=== PATIENT | female | born 1950 | race Caucasian/White ===

== ENCOUNTER → 2016-05-13 | Outpatient (CLI) | payer BC ==
[~2016-05-13] MED LIST: ATOR10TA88 PO; LISI-461 PO; SYN50 PO
[2016-05-13 12:42] LABS: BASO % 1.1 %; BASO ABS # 0.09 K/uL (0-0.2); COMPLETE YES; EOS % 14.9 %; HEMATOCRIT 40.5 % (37-47); IG% 0.1 %; LYMPH % 25.4 %; LYMPH ABS # 2.01 K/uL (1.2-3.4); MEAN CORPUSCULAR HEMOGLOBIN 31.6 pg (25-34); MEAN CORPUSCULAR HGB CONC 33.6 g/dl (32-36); MEAN PLATELET VOLUME 11.8 fL (7.4-10.4); MONO % 8.2 %; NEUT % 50.3 %; PLATELET COUNT 242 K/uL (130-400); RED BLOOD COUNT 4.31 M/uL (4.2-5.4)
[2016-05-13 12:57] LABS: ALT/SGPT 36 U/L (12-78); BLOOD UREA NITROGEN 17 mg/dl (7-18); CALCIUM 9.5 mg/dl (8.5-10.1); CARBON DIOXIDE 28 mmol/L (21-32); CHLORIDE 105 mmol/L (98-107); CHOLESTEROL 169 mg/dl (0-200); GLUCOSE 166 mg/dl (70-99); POTASSIUM 4.2 mmol/L (3.5-5.1); SODIUM 142 mmol/L (136-145); TRIGLYCERIDES 170 mg/dl (0-150); VERY LOW DENSITY LIPOPROT CALC 34 mg/dl
[2016-05-13 13:07] LABS: ALB/GLOB RATIO 1.1 (0.9-2); ALKALINE PHOSPHATASE 90 U/L (45-117); AST/SGOT 31 U/L (15-37); CHOLESTEROL/HDL RATIO 2.9; HDL CHOLESTEROL 59 mg/dl; LDL CHOLESTEROL CALCULATED 76 mg/dl
[2016-05-13 13:17] LABS: ESTIMATED AVERAGE GLUCOSE 166 mg/dl; HA1C FLAG Normal (Normal)
== END | disposition home or self-care (01) ==
LOC: C.LABBFT 07:39
PROVIDERS: ATTEND Internal Medicine
DX: Z00.00 Encounter for general adult medical examination without abnormal findings (principal); I10 Essential (primary) hypertension; E03.9 Hypothyroidism, unspecified; E78.00 Pure hypercholesterolemia, unspecified; R73.01 Impaired fasting glucose; E87.6 Hypokalemia; R06.09 Other forms of dyspnea

== ENCOUNTER 2024-02-25 03:25 | Inpatient (IN) ==
--- NOTE | 2024-02-25 03:47 | Emergency Department Note ---
History of Present Illness General Chief complaint: Abdominal Pain Stated complaint: RT SIDE ABD PAIN Time Seen by Provider: 02/25/24 03:39 History of Present Illness Maximum Pain Intensity: 9 This 73-year-old female with no prior abdominal surgeries presents ER for right lower abdominal pain for the past several hours. Patient cannot sleep because of the pain. She still is her appendix. Patient denies chest pain, dyspnea, fevers, flank pain, urinary symptoms, rash. No injury to the area. Her daughter yesterday. Home Medications Medication Instructions Recorded Confirmed Type aspirin 81 mg tablet,delayed 81 mg PO QAM 10/28/18 02/08/24 History release cholecalciferol (vitamin D3) 25 1,000 unit PO QAM 10/28/18 02/08/24 History mcg (1,000 unit) capsule (Vitamin D3) blood sugar diagnostic (OneTouch #100 ea 03/03/22 02/08/24 Rx Ultra Test strips) dapagliflozin propanediol 10 mg 10 mg PO DAILY #90 tabs 04/02/23 02/08/24 Rx tablet (Farxiga) levothyroxine 50 mcg tablet 50 mcg PO DAILY #90 tabs 04/21/23 02/08/24 Rx atorvastatin 20 mg tablet 20 mg PO DAILY #90 tabs 09/09/23 02/08/24 Rx metformin 500 mg tablet,extended 1,000 mg (2 x 500 mg) PO DAILY 10/21/23 02/08/24 Rx release 24 hr #180 tabs lisinopril 20 mg tablet 20 mg PO DAILY #90 tabs 01/25/24 02/08/24 Rx potassium chloride 20 mEq 20 meq PO DAILY #90 tabs 02/08/24 02/08/24 Rx tablet,extended release Allergies Allergy/AdvReac Type Severity Reaction Status Date / Time Sulfa (Sulfonamide Allergy Intermediate Hives Verified 02/08/24 08:24 Antibiotics) allopurinol AdvReac elevated Verified 02/08/24 08:24 creatinine Past Med/Surg History Problem List (Updated 02/25/24 @ 06:08 by Yolanda Iyer PA-C) Abdominal pain, acute (Acute) Elevated troponin (Acute) Hypokalemia (Acute) Hypomagnesemia (Acute) Mitral regurgitation (Chronic) mild on echo 2022 Hyperuricemia (Chronic) with recurrent gout Third degree uterine prolapse (Chronic) Hurst-Walker grade 3 cystocele (Chronic) Vaginal pessary present (Chronic) Type 2 diabetes mellitus (Chronic) Hypothyroidism (Chronic) Hypertension (Chronic) Hypercholesterolemia (Chronic) Medical History (Updated 02/25/24 @ 06:08 by Yolanda Iyer PA-C) History of colon polyps Surgical History History of colonoscopy History of tooth extraction History of cataract surgery unsure which eye Family History Mother Coronary heart disease Brother Myocardial infarction Grandmother (Paternal) Family history of diabetes mellitus Other Brain cancer No family history of adverse response to anesthesia Denies family history of Ovarian cancer Prostate cancer Breast cancer Colorectal cancer Social History Smoking Status: Never smoker Second Hand Exposure: Yes ( smoked when he was younger, now is ); Do You Dip or Chew Tobacco: No; Hx Alcohol Use: No Hx Substance Use: No Preferred Language: Korean Communication Ability: Effective Visual Impairment: No Limitations Hearing Ability: Normal Laboratory Helper Required: No Beliefs That Will Affect Care: None marital status: / Current Living Situation: Alone current occupational status: employed and retired 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 Feels Safe at Home: Yes Childhood Exposure to Second-Hand Smoke: Yes Diet: regular caffeine: Yes Dental Care, Regularly: No Physical Activity Frequency: Does not Exercise Seatbelt Use: always Sunscreen Use: No Assistive Devices: Glasses Review of Systems A total of 10 systems reviewed and were otherwise negative Physical Exam Vital Signs Vital Signs - 24 hr 02/25/24 03:29 02/25/24 04:01 02/25/24 04:01 Temperature 36.2 C L 36.9 C Temperature Source Temporal Artery Scan Oral Pulse Rate 78 72 Pulse Rate [Apical] 74 Pulse Rate from SpO2 Sensor Respiratory Rate 18 18 Respiratory Effort / Characteristics Non-Labored Spontaneous Non-Labored Respiratory Depth Normal Normal Respiratory Pattern Regular Regular Blood Pressure 201/108 H Blood Pressure [Right Arm] 212/92 H Blood Pressure Mean 139 Blood Pressure Mean [Right Arm] 132 Pulse Oximetry 98 96 96 Oxygen Delivery Method Room Air Room Air Room Air Sepsis Recent Fever Within 48 Hours No Sepsis New/Unexplained Change in Mental Status No Sepsis Action Taken by Nursing No Action Required 02/25/24 04:34 02/25/24 05:11 02/25/24 05:20 Temperature Temperature Source Pulse Rate 61 Pulse Rate [Apical] 69 Pulse Rate from SpO2 Sensor 65 Respiratory Rate 18 20 Respiratory Effort / Characteristics Non-Labored Respiratory Depth Normal Respiratory Pattern Regular Blood Pressure 186/80 H Blood Pressure [Right Arm] 187/86 H Blood Pressure Mean 145 Blood Pressure Mean [Right Arm] 119 Pulse Oximetry 99 95 Oxygen Delivery Method Room Air Room Air Sepsis Recent Fever Within 48 Hours Sepsis New/Unexplained Change in Mental Status Sepsis Action Taken by Nursing VITALS: Vitals are noted on the nurse's note and reviewed by myself. Vital signs stable. GENERAL: Pleasant elderly female ambulating without difficulties, in no acute distress, nondiaphoretic, well-developed well-nourished. SKIN: Capillary reflex less than 2 seconds. HEENT: Normocephalic. PERRLA. EOMI. Nares patent. Mucous membranes moist. Neck is supple without nuchal rigidity. HEART: Regular rate and rhythm LUNGS: Clear to auscultation bilaterally without wheezes, rales or rhonchi. No retractions or accessory muscle use. ABDOMEN: Positive bowel sounds x 4. Normal tympanic percussion. Soft, tender to palpation right lower quadrant, without masses or organomegaly. Santana sign negative. No guarding or rebound tenderness. no CVA tenderness MUSCULOSKELETAL: No gross musculoskeletal defects. NEURO: Patient was alert and oriented to person place and time. No focal neurological deficits. Course Administered Medications Potassium Chloride (K Aidan / Wtr) 10 meq in 100 mls @ 100 mls/hr IV Q1H SHALINI Stop: 02/25/24 06:44 Last Admin: 02/25/24 05:20 Dose: 100 mls/hr Documented By: SE Magnesium Sulfate/Dextrose (Magnesium Sulfate / D5w) 1 gm in 100 mls @ 100 mls/hr IV Q1H SHALINI Stop: 02/25/24 06:39 Last Admin: 02/25/24 05:21 Dose: 100 mls/hr Documented By: SE Discontinued Medications Acetaminophen (Ofirmev) 1,000 mg in 100 mls @ 400 mls/hr IV NOW [facility] Stop: 02/25/24 03:58 Last Infusion: 02/25/24 04:13 Dose: Infused Documented By: Admin: 02/25/24 03:57 Dose: 400 mls/hr Documented By: SE Ioversol (Optiray 320 100ml) 100 ml IV ONCE ONE Stop: 02/25/24 04:42 Last Admin: 02/25/24 04:42 Dose: 93 ml Documented By: DORCAS Ondansetron HCl (Ondansetron Inj 2 Mg/Ml 2 Ml Vial) 4 mg IV NOW STA Stop: 02/25/24 03:45 Last Admin: 02/25/24 03:57 Dose: 4 mg Documented By: SE Potassium Chloride (Potassium Chloride Crtab 20 Meq Tabcr) 40 meq PO NOW STA Stop: 02/25/24 04:40 Last Admin: 02/25/24 05:20 Dose: 40 meq Documented By: SE Medical Decision Making Medical Records Attestation: I reviewed the patient's medical records. Home Medications Current Medication List: was personally reviewed by me Laboratory Data Attestation: I reviewed the patient's lab results. 02/25/24 03:44 02/25/24 03:44 Lab Results 02/25/24 02/25/24 02/25/24 Range/Units 03:40 03:44 03:53 WBC 13.28 H (4.8-10.8) K/ul RBC 4.57 (4.20-5.40) M/uL Hgb 13.9 (12.0-16.0) g/dl POC Hgb 13.9 (12.0-16.0) g/dl Hct 40.3 (37.0-47.0) % POC Hct 41 (37-47) % MCV 88.2 (80.0-100.0) fL MCH 30.4 (25.0-34.0) pg MCHC 34.5 (32.0-36.0) g/dL RDW Std Deviation 39.0 (36.4-46.3) fL RDW Coeff of Faustino 12.1 (11.5-14.5) % Plt Count 276 (130-400) K/uL MPV 11.7 (9.4-12.4) fL Immature Gran % (Auto) 0.4 % Neut % (Auto) 82.0 % Lymph % (Auto) 11.4 % [place] % (Auto) 4.5 % Eos % (Auto) 1.1 % Baso % (Auto) 0.6 % Neut # (Auto) 10.90 H (1.40-6.50) K/uL Lymph # (Auto) 1.51 (1.20-3.40) K/uL [place] # (Auto) 0.60 H (0.11-0.59) K/uL Eos # (Auto) 0.14 (0.00-0.50) K/uL Baso # (Auto) 0.08 (0.00-0.20) K/uL Immature Gran # (Auto) 0.05 (0.01-0.20) K/uL POC Sodium 143 (135-144) mmol/L Sodium 142 (136-145) mmol/L POC Potassium 2.6 L (3.3-5.0) mmol/L Potassium 2.7 L (3.5-5.1) mmol/L POC Chloride 104 (101-112) mmol/L Chloride 103 (98-107) mmol/L Carbon Dioxide 25 (21-32) mmol/L POC Total CO2 24 (24-31) mmol/L Anion Gap 14 H (3-11) POC Anion Gap 19.0 (16-25) mmol/L POC BUN 12 (7-18) mg/dl BUN 14 (6-23) mg/dl Creatinine 1.17 (0.6-1.2) mg/dl POC Creatinine 1.1 (0.6-1.3) mg/dl Est Cr Clr Drug Dosing 42.0 ml/min eGFR 48.66 BUN/Creatinine Ratio 12.0 (10-20) Glucose 210 H (70-99(Fasting)) mg/dl POC Glucose (other) 206 H (70-99) mg/dl Calcium 9.3 (8.6-10.3) mg/dl POC Ioniz Calcium Rylie 1.10 L (1.12-1.32) mmol/l Magnesium 1.4 L (1.7-2.4) mg/dl Total Bilirubin 0.8 (0.2-1.0) mg/dl AST 22 (13-39) U/L ALT 18 (7-52) U/L Alkaline Phosphatase 125 H (34-104) U/L Troponin I High Sens 24.3 H (0-14) pg/ml Total Protein 7.4 (6.0-8.3) gm/dl Albumin 4.5 (3.4-5.0) gm/dl Globulin 2.9 (2.5-4.0) gm/dl Albumin/Globulin Ratio 1.6 (0.9-2) Lipase 14 (11-82) U/L Urine Color Yellow Urine Appearance Clear (Clear) Urine pH 5.5 (4.5-7.5) Ur Specific [place] 1.020 (1.000-1.030) Urine Protein 2+ H (Negative) Urine Glucose (UA) Negative (Negative) Urine Ketones Negative (Negative) Urine Blood Negative (Negative) Urine Nitrite Negative (Negative) Urine Bilirubin Negative (Negative) Urine Urobilinogen Negative (Negative) Ur Leukocyte Esterase Negative (Negative) Urine WBC (Auto) 0-5 (0-5) /hpf Urine RBC (Auto) 0-2 (0-2) /hpf U Hyaline Cast (Auto) 3-5 H (0-2) /lpf U Epithel Cells (Auto) 3-5 H (0-2) /hpf Urine Bacteria (Auto) None Seen (None Seen) Imaging Data Attestation: I personally reviewed and interpreted this imaging study as follows: Radiologist's Impression: Abdomen/Pelvis CT 02/25/24 03:44 EXAM: CT abd pelvis IV con only CLINICAL HISTORY: PAIN AT RLQ. TECHNIQUE: A CT scan of the abdomen and pelvis was performed with IV contrast administration. Coronal and sagittal reconstructive images were also obtained. 93 ml of Optiray was administered intravenously. One of the following dose reduction techniques was utilized for this exam: Automated exposure control, adjustment of the mA and/or kV according to patient size, use of iterative reconstruction. DLP: 1261.8 mGy-cm, CTDI: 1=27.2 mGy. COMPARISON: None. FINDINGS: Right vesicoureteric junction intramural calculus measuring about 2 x 3 mm in diameter. Consequent mild proximal right ureteric and pelvicalyceal system dilatation with smudged perinephric and periureteric fat planes and relatively enlarged right kidney, possibly post-acute obstructive/inflammatory sequel. Both kidneys show smooth outlines and preserved parenchymal thickness. No left hydronephrosis. No renal calculi. Under-filled urinary bladder. No obvious masses or calculi. No uterine or adnexal masses. Mild pelvic floor descent Average-sized liver showing diffuse reduction of its parenchymal attenuation denoting fatty infiltration. No dilated intra or extra-hepatic biliary tracts. Distended gall bladder showing sludge and calculi. Clear surrounding fat planes. Average-sized spleen. The pancreas, adrenal glands, and IVC are unremarkable. Vascular atheromatous calcifications. Mild sigmoid diverticulosis. Colonic fecal loading. The colon and small bowel loops are unremarkable. The stomach shows no abnormality No free air and no ascites. No obvious pathologically enlarged lymph nodes. Scanned osseous structures show no osseous destruction. Spondylodegnerative changes Scanned lung bases show atelectatic changes IMPRESSION: 1. Right vesicoureteric junction intramural calculus 2 x 3 mm with consequent mild proximal backpressure changes. Associated smudged perinephric and periureteric fat planes and relatively enlarged right kidney, possibly post acute obstructive/inflammatory sequel. 2. Hepatic steatosis. 3. Distended gall bladder sludge and calculi. 4. Mild sigmoid diverticulosis. 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 Electronically signed by Olive Barron 02-25-2024 06:00 AM MDM Narrative Prior records/ancillary studies reviewed. Triage Nursing notes reviewed. Additional history obtained from family. The patient's history was concerning for abdominal pain. Differential diagnosis: Etiologies such as appendicitis, diverticulitis, PUD, biliary pathology, UTI, pancreatitis, obstruction, mesenteric ischemia, aortic pathology, infections, inflammatory bowel disease, renal colic, as well as others were entertained. Physical examination findings: As above. ER treatment provided: An order was placed for continuous cardiac monitoring. The monitor shows a rate of 60-100 with a sinus rhythm per my Independent interpretation. Tylenol and Zofran were ordered Potassium and magnesium replaced On reassessment the patient felt better. Diagnostics interpreted by me: EKG ordered for hypokalemia EKG: Normal sinus, probable U waves in the anteroseptal leads, rate of 65. Impression normal sinus rhythm with possible U waves independently interpreted by myself The labs Independently Interpreted by myself revealed hypokalemia, low magnesium, leukocytosis, slightly elevated troponin Imaging studies: Imaging was reviewed and read by radiology Consultation: A consultation was placed with the hospitalist. The case was discussed and diagnostics were reviewed. The patient was evaluated in the ER for further treatment. Exam and history seem consistent with low potassium and magnesium with a slightly elevated troponin most likely type II. Patient states she has not been eating or drinking much with the passing of her daughter. CAT scan is concerning for probably passed stone as patient's pain is now resolved. No UTI. She is feeling better. Medicine was consulted and the case is discussed. She will be evaluated for possible admission. Electrolytes were replaced as above. By the evaluation outlined above emergent etiologies such as appendicitis, diverticulitis, PUD, biliary pathology, UTI, pancreatitis, obstruction, mesenteric ischemia, aortic pathology, infections, inflammatory bowel disease, as well as others were deemed relatively unlikely. The pt informed about the findings as listed above. All questions were answered and pleased with the treatment The chart was completed utilizing [employer] Speech voice recognition software. Grammatical errors, random word insertions, pronoun errors, and incomplete sentences are an occassional consequence of this system due to software limitations, ambient noise, and hardware issues. Any formal questions or concerns about the content, text, or information contained within the body of this dictation should be directly addressed to the physician orthodontist assistant for clarification. Impression & Plan Hypomagnesemia, Hypokalemia, Elevated troponin, Abdominal pain, acute Discharge Plan Visit Data Chief Complaint: Abdominal Pain Stated Complaint: RT SIDE ABD PAIN ED Provider: Traci Lee ED Midlevel Provider: Yolanda Iyer Discharge Problem: Hypomagnesemia, Hypokalemia, Elevated troponin, Abdominal pain, acute Patient Disposition: Being Evaluated by Hospitalist Condition: Good Forms Stand Alone Forms: My [facility] Chatty Prescriptions Prescriptions: No Action (DME) OneTouch Ultra Test Strip See Rx Instructions .Route Qty: 100 5RF Rx Instructions: TEST BSG ONCE DAILY; DX CODE- E11.9 dapagliflozin propanediol [Farxiga] 10 mg tablet 10 mg PO DAILY Qty: 90 3RF levothyroxine 50 mcg tablet 50 mcg PO DAILY Qty: 90 3RF atorvastatin 20 mg tablet 20 mg PO DAILY Qty: 90 3RF metformin 500 mg tablet extended release 24 hr 1,000 mg PO DAILY Qty: 180 3RF lisinopril 20 mg tablet 20 mg PO DAILY Qty: 90 3RF potassium chloride 20 mEq tablet extended release 20 meq PO DAILY Qty: 90 3RF aspirin 81 mg Tablet,Delayed Release (Dr/Ec) 81 mg PO QAM cholecalciferol (vitamin D3) [Vitamin D3] 1,000 unit Capsule 1,000 unit PO QAM Referrals Referrals: Patricia Bojorquez MD [Primary Care Provider] -
[2024-02-25] MEDS: ONDANSETRON INJ 2 MG/ML 2 ML VIAL IV STA (03:57)
[2024-02-25] MEDS: ACETAMINOPHEN 1,000 MG/100 ML VIAL IV STA (03:57)
[2024-02-25 04:05] LABS: iSTAT Creatinine 1.1 mg/dl (0.6-1.3); iSTAT Hemoglobin 13.9 g/dl (12.0-16.0); iSTAT Ionized Calcium 1.1 mmol/l (1.12-1.32); iSTAT Potassium 2.6 mmol/L (3.3-5.0)
[2024-02-25 04:07] LABS: Basophils # (auto) 0.08 K/uL (0.00-0.20); Basophils % (auto) 0.6 %; Eosinophils # (auto) 0.14 K/uL (0.00-0.50); Eosinophils % (auto) 1.1 %; Hematocrit (blood only) 40.3 % (37.0-47.0); Hemoglobin 13.9 g/dl (12.0-16.0); Immature Granulocytes # (auto) 0.05 K/uL (0.01-0.20); Immature Granulocytes % (auto) 0.4 %; Lymphocytes # (auto) 1.51 K/uL (1.20-3.40); Lymphocytes % (auto) 11.4 %; Mean Corpuscular Hemoglobin 30.4 pg (25.0-34.0); Mean Corpuscular Hgb Conc 34.5 g/dL (32.0-36.0); Mean Corpuscular Volume 88.2 fL (80.0-100.0); Mean Platelet Volume 11.7 fL (9.4-12.4); Monocytes % (auto) 4.5 %; Platelet Count 276 K/uL (130-400); RDW Coefficient of Variation 12.1 % (11.5-14.5); Red Blood Count 4.57 M/uL (4.20-5.40); White Blood Count 13.28 K/ul (4.8-10.8)
[2024-02-25 04:07] LABS: Appearance Urine Clear (Clear); Bacteria Urine Automated None Seen (None Seen); Bilirubin Urine Negative (Negative); Blood Urine Negative (Negative); Color Urine Yellow; Glucose Urine UA Negative (Negative); Ketones Urine Negative (Negative); Leukocyte Esterase Urine Negative (Negative); Nitrite Urine Negative (Negative); Protein Urine 2+ (Negative); RBC Urine Automated 0-2 /hpf (0-2); Urobilinogen Urine Negative (Negative); WBC Urine Automated 0-5 /hpf (0-5); pH Urine 5.5 (4.5-7.5)
[2024-02-25 04:22] LABS: Albumin Globulin Ratio 1.6 (0.9-2); Albumin Level 4.5 gm/dl (3.4-5.0); Bilirubin,Total 0.8 mg/dl (0.2-1.0); Calcium 9.3 mg/dl (8.6-10.3); Globulin 2.9 gm/dl (2.5-4.0); Potassium 2.7 mmol/L (3.5-5.1); Total Protein 7.4 gm/dl (6.0-8.3)
[2024-02-25 04:30] LABS: Magnesium 1.4 mg/dl (1.7-2.4)
[2024-02-25 04:37] LABS: Troponin I High Sensitivity 24.3 pg/ml (0-14)
[2024-02-25] MEDS: OPTIRAY 320 100ml IV ONE (04:42)
[2024-02-25] MEDS: POTASSIUM CHLORIDE / WTR 10 MEQ/100 ML PLCT IV SCH (05:20)
[2024-02-25] MEDS: POTASSIUM CHLORIDE CRTAB 20 MEQ TABCR PO STA (05:20)
[2024-02-25] MEDS: MAGNESIUM SULFATE / D5W 1 GM/100 ML BAG IV SCH (05:21)
--- NOTE | 2024-02-25 06:01 | CT Scan Report ---
EXAM: CT abd pelvis IV con only CLINICAL HISTORY: PAIN AT RLQ. TECHNIQUE: A CT scan of the abdomen and pelvis was performed with IV contrast administration. Coronal and sagittal reconstructive images were also obtained. 93 ml of Optiray was administered intravenously. One of the following dose reduction techniques was utilized for this exam: Automated exposure control, adjustment of the mA and/or kV according to patient size, use of iterative reconstruction. DLP: 1261.8 mGy-cm, CTDI: 1=27.2 mGy. COMPARISON: None. FINDINGS: Right vesicoureteric junction intramural calculus measuring about 2 x 3 mm in diameter. Consequent mild proximal right ureteric and pelvicalyceal system dilatation with smudged perinephric and periureteric fat planes and relatively enlarged right kidney, possibly post-acute obstructive/inflammatory sequel. Both kidneys show smooth outlines and preserved parenchymal thickness. No left hydronephrosis. No renal calculi. Under-filled urinary bladder. No obvious masses or calculi. No uterine or adnexal masses. Mild pelvic floor descent Average-sized liver showing diffuse reduction of its parenchymal attenuation denoting fatty infiltration. No dilated intra or extra-hepatic biliary tracts. Distended gall bladder showing sludge and calculi. Clear surrounding fat planes. Average-sized spleen. The pancreas, adrenal glands, and IVC are unremarkable. Vascular atheromatous calcifications. Mild sigmoid diverticulosis. Colonic fecal loading. The colon and small bowel loops are unremarkable. The stomach shows no abnormality No free air and no ascites. No obvious pathologically enlarged lymph nodes. Scanned osseous structures show no osseous destruction. Spondylodegnerative changes Scanned lung bases show atelectatic changes IMPRESSION: 1. Right vesicoureteric junction intramural calculus 2 x 3 mm with consequent mild proximal backpressure changes. Associated smudged perinephric and periureteric fat planes and relatively enlarged right kidney, possibly post acute obstructive/inflammatory sequel. 2. Hepatic steatosis. 3. Distended gall bladder sludge and calculi. 4. Mild sigmoid diverticulosis. 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 Electronically signed by Olive Barron 02-25-2024 06:00 AM
--- NOTE | 2024-02-25 06:15 | History & Physical Report ---
Date of Service February 25, 2024 Assessment & Plan (1) Abdominal pain, acute: (2) Hypokalemia: (3) Hypomagnesemia: Plan 73-year-old female PMHx T2DM, hypothyroidism, HTN, and hypercholesterolemia presenting to ED for onset of RLQ abdominal pain starting at 0100 the morning of arrival. States that the pain had a sudden onset, mainly localized to the RLQ and wrapping some to her R flank. CTAP suggestive of right vesicoureteric junction intramural calculus 2 x 3 mm with consequent mild proximal back pressure changes, associated smudged perinephric and periureteric fat planes and relatively enlarged right kidney, possibly post acute obstructive/inflammatory sequel. States that the pain has improved some upon admitting exam. Also found to have hypokalemia and hypomagnesemia on admitting labs. #Abdominal pain RLQ abdominal pain starting at 0100 morning of arrival, localized to RLQ w/ wrap around to R flank, no LUTS or gross stone noticed w/ urination. Suspect 2/2 to renal calculi. Increasing in severity, but without additional symptoms of nausea/vomiting/diarrhea. No prior abdominal surgeries. Does have h/o diverticulosis identified on colonoscopy (2019). - CBC w/ leukocytosis, lipase WNL, UA w/o signs of infection - CTAP - R vesicoureteric junction intramural calculus 2x3 mm w/ mild proximal backpressure changes, enlarged R kidney, ? post acute obstructive/inflammatory sequel - Ceftriaxone 2g IV x 1 - Will not provide additional doses as she is not having infectious symptoms however would prefer to cover for any possibility of infected stone - Strain urine for chance of additional passing of stone(s) #Hypokalemia Asymptomatic currently; Appears to have had low reading in the past and does take KCl 20 mEq daily as outpatient which was a recent dose adjustment (increase). - K 2.7; provided with KCl 40 mEq p.o. and 10 mEq IV; Give additional 40 mEq KCl - Mg 1.4; BMP pending repeat #Hypomagnesemia With concurrent hypokalemia - Mg 1.4; provided with mag sulfate 1 g in ED - MgSO4 1 g IV x 1- Pending repeat #Elevated troponin Pt w/ h/o mitral regurg diagnosed on recent echo (07/2022), also on aspirin 81 mg daily; no current chest pain - Troponin 24.3, repeat 25.2, will trend; EKG was NSR rate around 65 bpm no signs of ischemia - Likely 2/2 demand #DMT2 H/o DMT2, metformin and Farxiga - Most recent A1C 01/2024 at 7.7% - SSI held at admission since insulin naive + not expected to have prolonged stay; BSG ACHS, adjust regimen if needed - T2DM diet #HTN- lisinopril #Hypothyroidism-levothyroxine Of note, pt's daughter passed yesterday. 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 Denying SI/HI. Dispo: Admit VTE prophylaxis: Lovenox This document was dictated utilizing [employer]. Please excuse any grammatical errors that may be secondary to use of this software. Admission and Anticipated Discharge Date Admission Date: 02/25/2024 History of Present Illness Chief Complaint: Abdominal pain Primary Care Provider: Patricia Bojorquez MD 73-year-old female PMHx T2DM, hypothyroidism, HTN, and hypercholesterolemia presenting to ED for onset of RLQ abdominal pain starting at 0100 the morning of arrival. States that the pain had a sudden onset, mainly localized to the RLQ and wrapping some to her R flank. Describing it as sharp but in different severities, rating it 10/10 on the pain scale at its maximum, and currently around 4-5/10 on the pain scale. Did have a brief episode of nausea but denies vomiting. No recent trauma. CBC does reveal leukocytosis which is neutrophil predominant, but WNL lipase and no evidence of infection on UA. CTAP revealed right vesicoureteric junction intramural calculus (2 x 3 mm) with consequent mild proximal back pressure changes, associated smudged perinephric and periureteral fat planes relatively enlarged R kidney possibly post acute obstructive/inflammatory sequel, hepatic steatosis, distended gallbladder sludge and calculi, mild sigmoid diverticulosis. EKG was normal sinus rate at 65 bpm. Found to have hypokalemia and hypomagnesemia on inital labs. Patient received KCl, magnesium, Zofran, and acetaminophen in ED. Please see Dr. White's attestation for adjustments/additions to treatment plan. Allergies Allergy/AdvReac Type Severity Reaction Status Date / Time Sulfa (Sulfonamide Allergy Intermediate Hives Verified 02/08/24 08:24 Antibiotics) allopurinol AdvReac elevated Verified 02/08/24 08:24 creatinine Home Medications Medication Instructions Recorded Confirmed Type aspirin 81 mg tablet,delayed 81 mg PO QAM 10/28/18 02/25/24 History release cholecalciferol (vitamin D3) 25 1,000 unit PO QAM 10/28/18 02/25/24 History mcg (1,000 unit) capsule (Vitamin D3) blood sugar diagnostic (OneTouch #100 ea 03/03/22 02/08/24 Rx Ultra Test strips) dapagliflozin propanediol 10 mg 10 mg PO DAILY #90 tabs 04/02/23 02/25/24 Rx tablet (Farxiga) levothyroxine 50 mcg tablet 50 mcg PO DAILY #90 tabs 04/21/23 02/25/24 Rx atorvastatin 20 mg tablet 20 mg PO DAILY #90 tabs 09/09/23 02/25/24 Rx metformin 500 mg tablet,extended 1,000 mg (2 x 500 mg) PO DAILY 10/21/23 02/25/24 Rx release 24 hr #180 tabs lisinopril 20 mg tablet 20 mg PO DAILY #90 tabs 01/25/24 02/25/24 Rx potassium chloride 20 mEq 20 meq PO DAILY #90 tabs 02/08/24 02/25/24 Rx tablet,extended release Past Med/Surg History Problem List (Updated 02/25/24 @ 14:39 by KIANA Villaseñor) Right ureteral stone Abdominal pain, acute (Acute) Elevated troponin (Acute) Hypokalemia (Acute) Hypomagnesemia (Acute) Mitral regurgitation (Chronic) mild on echo 2022 Hyperuricemia (Chronic) with recurrent gout Third degree uterine prolapse (Chronic) [place]-Walker grade 3 cystocele (Chronic) Vaginal pessary present (Chronic) Type 2 diabetes mellitus (Chronic) Hypothyroidism (Chronic) Hypertension (Chronic) Hypercholesterolemia (Chronic) Medical History History of colon polyps Surgical History History of colonoscopy History of tooth extraction History of cataract surgery unsure which eye Family History Mother Coronary heart disease Brother Myocardial infarction Grandmother (Paternal) Family history of diabetes mellitus Other Brain cancer No family history of adverse response to anesthesia Denies family history of Ovarian cancer Prostate cancer Breast cancer Colorectal cancer Social History Smoking Status: Never smoker Second Hand Exposure: Yes ( smoked when he was younger, now is ); Do You Dip or Chew Tobacco: No; Hx Alcohol Use: No Hx Substance Use: No Preferred Language: Scottish Communication Ability: Effective Visual Impairment: No Limitations Hearing Ability: Normal Elementary Assistant Principal Required: No Beliefs That Will Affect Care: None marital status: / Current Living Situation: Alone current occupational status: employed and retired 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 No cyanosis or clubbing Head: Normocephalic, atraumatic Eyes: PERRL, conjunctivae clear, sclera non-icteric ENT: External ear and ear canal without swelling; nose atraumatic; good dentition, tongue normal appearance, pharynx normal without tonsillar swelling or exudate Neck: Supple, no LADCardio: RRR, no M/G/R, S1 and S2 normal Resp: No respiratory distress, Lungs CTA in all lobes bilaterally, no wheezes, rales, or rhonchi Abdomen: Very mild tenderness to palpation RLQ; No guarding or rebound tenderness; no distention; No masses or hepatosplenomegaly; Bowel sounds normoactive MSK: No deformities, full ROM throughout; pulses palpable and equal; no edema. Neuro: Awake, alert; Muscle strength 5/5 bilaterally in UE/LE; Sensation intact bilaterally; CN grossly intact Psych: Appropriate mood and affect; good judgement and insight. Brother present in room at time of visit. Results & Data Results & Data Vital Signs (Past 12 Hours) Vital Signs Temp Pulse Pulse Resp BP BP Pulse Ox 02/25/24 05:20 69 20 187/86 H 95 02/25/24 05:11 61 02/25/24 04:34 18 186/80 H 99 02/25/24 04:01 72 96 02/25/24 04:01 36.9 C 74 18 212/92 H 96 02/25/24 03:29 36.2 C L 78 18 201/108 H 98 O2 Del Method 02/25/24 05:20 Room Air 02/25/24 05:11 02/25/24 04:34 Room Air 02/25/24 04:01 Room Air 02/25/24 04:01 Room Air 02/25/24 03:29 Room Air Laboratory Results 02/25/24 02/25/24 02/25/24 03:53 03:44 03:40 WBC 13.28 H RBC 4.57 Hgb 13.9 POC Hgb 13.9 Hct 40.3 POC Hct 41 MCV 88.2 MCH 30.4 MCHC 34.5 RDW Std Deviation 39.0 RDW Coeff of Faustino 12.1 Plt Count 276 MPV 11.7 Immature Gran % (Auto) 0.4 Neut % (Auto) 82.0 Lymph % (Auto) 11.4 Forrest % (Auto) 4.5 Eos % (Auto) 1.1 Baso % (Auto) 0.6 Neut # (Auto) 10.90 H Lymph # (Auto) 1.51 Forrest # (Auto) 0.60 H Eos # (Auto) 0.14 Baso # (Auto) 0.08 Immature Gran # (Auto) 0.05 POC Sodium 143 Sodium 142 POC Potassium 2.6 L Potassium 2.7 L POC Chloride 104 Chloride 103 Carbon Dioxide 25 POC Total CO2 24 Anion Gap 14 H POC Anion Gap 19.0 POC BUN 12 BUN 14 Creatinine 1.17 POC Creatinine 1.1 Est Cr Clr Drug Dosing 42.0 eGFR 48.66 BUN/Creatinine Ratio 12.0 Glucose 210 H POC Glucose (other) 206 H Calcium 9.3 POC Ioniz Calcium Rylie 1.10 L Magnesium 1.4 L Total Bilirubin 0.8 AST 22 ALT 18 Alkaline Phosphatase 125 H Troponin I High Sens 24.3 H Total Protein 7.4 Albumin 4.5 Globulin 2.9 Albumin/Globulin Ratio 1.6 Lipase 14 Urine Color Yellow Urine Appearance Clear Urine pH 5.5 Ur Specific Herrick 1.020 Urine Protein 2+ H Urine Glucose (UA) Negative Urine Ketones Negative Urine Blood Negative Urine Nitrite Negative Urine Bilirubin Negative Urine Urobilinogen Negative Ur Leukocyte Esterase Negative Urine WBC (Auto) 0-5 Urine RBC (Auto) 0-2 U Hyaline Cast (Auto) 3-5 H U Epithel Cells (Auto) 3-5 H Urine Bacteria (Auto) None Seen Diagnostic Findings Abdomen/Pelvis CT 02/25/24 03:44 EXAM: CT abd pelvis IV con only CLINICAL HISTORY: PAIN AT RLQ. TECHNIQUE: A CT scan of the abdomen and pelvis was performed with IV contrast administration. Coronal and sagittal reconstructive images were also obtained. 93 ml of Optiray was administered intravenously. One of the following dose reduction techniques was utilized for this exam: Automated exposure control, adjustment of the mA and/or kV according to patient size, use of iterative reconstruction. DLP: 1261.8 mGy-cm, CTDI: 1=27.2 mGy. COMPARISON: None. FINDINGS: Right vesicoureteric junction intramural calculus measuring about 2 x 3 mm in diameter. Consequent mild proximal right ureteric and pelvicalyceal system dilatation with smudged perinephric and periureteric fat planes and relatively enlarged right kidney, possibly post-acute obstructive/inflammatory sequel. Both kidneys show smooth outlines and preserved parenchymal thickness. No left hydronephrosis. No renal calculi. Under-filled urinary bladder. No obvious masses or calculi. No uterine or adnexal masses. Mild pelvic floor descent Average-sized liver showing diffuse reduction of its parenchymal attenuation denoting fatty infiltration. No dilated intra or extra-hepatic biliary tracts. Distended gall bladder showing sludge and calculi. Clear surrounding fat planes. Average-sized spleen. The pancreas, adrenal glands, and IVC are unremarkable. Vascular atheromatous calcifications. Mild sigmoid diverticulosis. Colonic fecal loading. The colon and small bowel loops are unremarkable. The stomach shows no abnormality No free air and no ascites. No obvious pathologically enlarged lymph nodes. Scanned osseous structures show no osseous destruction. Spondylodegnerative changes Scanned lung bases show atelectatic changes IMPRESSION: 1. Right vesicoureteric junction intramural calculus 2 x 3 mm with consequent mild proximal backpressure changes. Associated smudged perinephric and periureteric fat planes and relatively enlarged right kidney, possibly post acute obstructive/inflammatory sequel. 2. Hepatic steatosis. 3. Distended gall bladder sludge and calculi. 4. Mild sigmoid diverticulosis. [facility]'s ER was called at at 4:55 AM BENEFITS SPECIALIST RECRUITER, 02/25/[address] Iyer was informed regarding the the presence of significant medical findings. Electronically signed by Olive Barron 02-25-2024 06:00 AM Medications Administered KCl 40 mEq po KCl 10 mEq IV Ondansetron 4mg IV Magnesium sulfate 1g IV Acetaminophen 1g IV ECG Additional Comments: NSR, minimal voltage criteria for LVH, nonspecific ST abnormality 65 bpm, FL 148, QRS 76, QT/QTc 460/478, PRT -01/22/11 Code Status & VTE Plan Code Status DNR/DNI Supervising Physician Co-Signing Physician Notes Patient seen and examined, chart reviewed, case discussed with CHRISTINA Iyer and I agree with the assessment and plan as above. In brief, patient is a 73yo female with history of DM, HTN, HLP presenting with abdominal pain. On exam patient is afebrile, HD stable HEENT - MMM, Neck supple Heart - +S1/S2, regular Lungs - CTA, no rales/rhonchi/wheezes Abd - soft, tenderness to palpation in RLQ, no rebound/guarding/peritonitis Ext - warm, well perfused Labs and images reviewed WBC is normal Mg=1.[address] of the abdomen with right vesicoureteric junction calculus with mild backpressure changes - Assessment/Plan - RLQ abdominal pain, electrolyte abnormalities -Mg and K repletion -Follow urine culture -Ceftriaxone -Remainder as above PG Care Time/CCT Total # of Minutes Spent Total Time Spent with Patient: Total time spent is greater than 50% in coordination of care (as documented) at patient's floor/unit and/or counseling patient: Coding Level of Care Code 98322 INT INP/OBS CARE 3/75MIN Diagnoses Abdominal pain, acute R10.9 Hypokalemia E87.6 Hypomagnesemia E83.42
--- NOTE | 2024-02-25 07:16 | Emergency Department Note ---
ED Visit Note I was consulted by the Advanced Practice Provider. I personally made/approved the management plan and take responsibility for the patient management. I performed a substantive portion of the visit. This includes reviewing the patient's laboratory work including hypokalemia, hypomagnesemia and elevated troponin. There is no evidence of ST elevation on EKG. patient did receive Zofran for nausea, IV magnesium and potassium were ordered. CT imaging of the abdomen pelvis was performed and reveals a right ureteral calculus. UA is negative for infection, but serum WBC is elevated. This is likely related to stress mediated event as the patient stated she had buried her daughter today. Patient's case was discussed with the hospitalist service, please see Tamela Iyer PA-C's notes for further details of the history, physical and visit. .
[2024-02-25] MEDS: POTASSIUM CHLORIDE 20 MEQ/15 ML UDC PO STA (07:33)
[2024-02-25] MEDS: MAGNESIUM SULFATE / D5W 1 GM/100 ML BAG IV STA (07:33)
[2024-02-25] MEDS: lisinopril 10 MG TAB PO STA (07:34)
[2024-02-25] MEDS: cefTRIAXone SODIUM 2,000 MG/50 ML BAG IV STA (08:09)
[2024-02-25] MEDS: SODIUM CHLORIDE 0.9% 1,000 ML IV SCH (08:40)
[2024-02-25] MEDS: MoRPHine SULFATE 2 MG/ML CARP IV PRN (08:43)
[2024-02-25] MEDS ORDERED: ONDANSETRON INJ 2 MG/ML 2 ML VIAL IV PRN (09:41)
[2024-02-25] MEDS ORDERED: MELATONIN 3 MG TAB PO PRN (09:41)
[2024-02-25] MEDS ORDERED: MAGNESIUM HYDROXIDE SUSP 30 ML UDC PO PRN (09:41)
[2024-02-25] MEDS ORDERED: POLYETHYLENE (MIRALAX) 17 GM PACK PO PRN (09:41)
[2024-02-25] MEDS ORDERED: NON-FORMULARY MEDICATION (Dapagliflozin Propanediol [Farxiga] 10 mg tablet) PO SCH (09:41)
[2024-02-25] MEDS: POTASSIUM CHLORIDE CRTAB 20 MEQ TABCR PO SCH (10:49)
[2024-02-25] MEDS: LEVOTHYROXINE SODIUM 50 MCG TABLET PO SCH (10:49)
[2024-02-25] MEDS: CHOLECALCIFEROL 25 MCG (1000 UNITS) TAB PO SCH (10:50)
[2024-02-25] MEDS: lisinopril 20 MG TAB PO SCH (10:50)
[2024-02-25] MEDS: ASPIRIN 81 MG ECTAB PO SCH (10:51)
[2024-02-25] MEDS: ATORVASTATIN 20 MG TAB PO SCH (10:51)
[2024-02-25 11:05] LABS: Basophils # (auto) 0.09 K/uL (0.00-0.20); Eosinophils # (auto) 0.06 K/uL (0.00-0.50); Eosinophils % (auto) 0.7 %; Hematocrit (blood only) 35.9 % (37.0-47.0); Hemoglobin 12.6 g/dl (12.0-16.0); Immature Granulocytes # (auto) 0.03 K/uL (0.01-0.20); Immature Granulocytes % (auto) 0.3 %; Lymphocytes % (auto) 20.9 %; Mean Corpuscular Hemoglobin 31.3 pg (25.0-34.0); Mean Corpuscular Hgb Conc 35.1 g/dL (32.0-36.0); Mean Corpuscular Volume 89.1 fL (80.0-100.0); Mean Platelet Volume 11.7 fL (9.4-12.4); Monocytes # (auto) 0.64 K/uL (0.11-0.59); Neutrophils # (auto) 6.39 K/uL (1.40-6.50); Neutrophils % (auto) 70.1 %; Platelet Count 258 K/uL (130-400); RDW Coefficient of Variation 12.1 % (11.5-14.5); Red Blood Count 4.03 M/uL (4.20-5.40); White Blood Count 9.11 K/ul (4.8-10.8)
[2024-02-25 11:21] LABS: BUN Creatinine Ratio 9.8 (10-20); Calcium 8.8 mg/dl (8.6-10.3); Potassium 3.9 mmol/L (3.5-5.1)
[2024-02-25] MEDS ORDERED: GLUCOSE 40% GEL 15 GM TUBE PO PRN (14:24)
[2024-02-25] MEDS ORDERED: GLUCOSE 10 TAB/TUBE PO PRN (14:24)
[2024-02-25] MEDS ORDERED: CARBOHYDRATES FOR HYPOGLYCEMIA PO PRN (14:24)
[2024-02-25] MEDS ORDERED: GLUCAGON FOR INJ 1 MG VIAL SQ PRN (14:24)
[2024-02-25] MEDS ORDERED: DEXTROSE 50% 50 ML SYRINGE IV PRN (14:24)
--- NOTE | 2024-02-25 14:31 | Communication Note ---
Date of Service: February 25, 2024 The patient was seen by me. Awaiting urology consultation recommendations. Sliding scale insulin coverage ordered. Metformin and Farxiga are on hold.
--- NOTE | 2024-02-25 14:47 | Urology Consultation ---
Date of Consultation February 25, 2024 Assessment & Plan (1) Right ureteral stone: (2) Abdominal pain, acute: Plan 73yo female who presented with right sided abdominal/flank pain and was found to have a right 3mm UVJ stone 2 x 3 mm with mild hydronephrosis and associated smudged perinephric and periureteric fat planes and relatively enlarged right kidney, possibly post acute obstructive/inflammatory sequel. Patient is afebrile and hemodynamically stable Labs today show no leukocytosis and creatinine 1.23 Urinalysis not concerning for infection We reviewed her CT findings showing an obstructing 3mm right UVJ stone. We discussed options for acute stone management with cystoscopy and stent placement. Ureteral stents were discussed as well as postoperative issues and pain management. We also discussed trial of passage with max expulsion therapy. Stone passage rates given size and location were reviewed. Risks and benefits of each were discussed. All questions were answered. Patient is not currently NPO (had breakfast/lunch). She is currently stable and pain is well-controlled. We discussed that it would be reasonable to try to pass the stone given the size and location-she is agreeable. Recommend straining all urine. Continue supportive care and pain management as needed. Will make NPO at midnight and reassess tomorrow morning. Urology will follow along. Please call with any questions/concerns or changes in patient status. History of Present Illness Attending Physician: Dev Munoz MD History of Present Illness 73-year-old female who presented to the ED with a sudden onset of severe right lower quadrant abdominal pain. On arrival, she was afebrile and hemodynamically stable. She had a mild leukocytosis of 13 and normal renal function. Urinalysis not suspicious for infection. CTAP revealed right vesicoureteric junction intramural calculus (2 x 3 mm) with consequent mild proximal back pressure changes, associated smudged perinephric and periureteral fat planes relatively enlarged R kidney possibly post acute obstructive/inflammatory sequel. She is admitted to medicine service. Patient was seen at bedside today. She is awake and resting in bed on arrival. No acute distress. She denies any noticeable stone passage. Pain is currently well-controlled. Denies fever, chills, nausea, vomiting. Reports she is voiding without issue. Denies hematuria or dysuria. She did have breakfast today. Previously seen by urology for urinary frequency. Denies history of kidney stones. Allergies Allergy/AdvReac Type Severity Reaction Status Date / Time Sulfa (Sulfonamide Allergy Intermediate Hives Verified 02/08/24 08:24 Antibiotics) allopurinol AdvReac elevated Verified 02/08/24 08:24 creatinine Home Medications Medication Instructions Recorded Confirmed Type aspirin 81 mg tablet,delayed 81 mg PO QAM 10/28/18 02/25/24 History release cholecalciferol (vitamin D3) 25 1,000 unit PO QAM 10/28/18 02/25/24 History mcg (1,000 unit) capsule (Vitamin D3) blood sugar diagnostic (LiveNinjaTouch #100 ea 03/03/22 02/08/24 Rx Ultra Test strips) dapagliflozin propanediol 10 mg 10 mg PO DAILY #90 tabs 04/02/23 02/25/24 Rx tablet (Farxiga) levothyroxine 50 mcg tablet 50 mcg PO DAILY #90 tabs 04/21/23 02/25/24 Rx atorvastatin 20 mg tablet 20 mg PO DAILY #90 tabs 09/09/23 02/25/24 Rx metformin 500 mg tablet,extended 1,000 mg (2 x 500 mg) PO DAILY 10/21/23 02/25/24 Rx release 24 hr #180 tabs lisinopril 20 mg tablet 20 mg PO DAILY #90 tabs 01/25/24 02/25/24 Rx potassium chloride 20 mEq 20 meq PO DAILY #90 tabs 02/08/24 02/25/24 Rx tablet,extended release Patient History Medical History History of colon polyps Surgical History History of colonoscopy History of tooth extraction History of cataract surgery unsure which eye Family History Mother Coronary heart disease Brother Myocardial infarction Grandmother (Paternal) Family history of diabetes mellitus Other Brain cancer No family history of adverse response to anesthesia Denies family history of Ovarian cancer Prostate cancer Breast cancer Colorectal cancer Social History Smoking Status: Never smoker Second Hand Exposure: Yes ( smoked when he was younger, now is ); Do You Dip or Chew Tobacco: No; Hx Alcohol Use: No Hx Substance Use: No Preferred Language: Armenian Communication Ability: Effective Visual Impairment: No Limitations Hearing Ability: Normal Way Inspector Required: No Beliefs That Will Affect Care: None marital status: / Current Living Situation: Alone current occupational status: employed and retired 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 Other Information That Helps Us Care for You: No Feels Safe at Home: Yes Safety Concerns: Feels Safe At This Time Childhood Exposure to Second-Hand Smoke: Yes Diet: regular caffeine: Yes Dental Care, Regularly: No Physical Activity Frequency: Does not Exercise Seatbelt Use: always Sunscreen Use: No Assistive Devices: Glasses Review of Systems Review of Systems: All systems reviewed & are unremarkable except as noted in HPI & below Physical Exam Constitutional: well developed and well nourished; no acute distress Respiratory: normal respiratory effort; no respiratory distress and no labored breathing Musculoskeletal: Head/Neck/Chest: normocephalic Skin: No visible rashes or lesions to exposed skin areas Neurologic: moves all extremities and awake Psychiatric: A+Ox3, euthymic affect Results & Data Vital Signs (Past 12 Hours) Vital Signs Temp Pulse Pulse Resp BP BP Pulse Ox 02/25/24 14:11 72 16 185/73 H 97 02/25/24 14:00 78 19 02/25/24 13:15 76 21 02/25/24 12:00 68 19 02/25/24 11:00 75 16 02/25/24 10:00 67 18 02/25/24 09:22 170/94 H 02/25/24 09:22 170/94 H 02/25/24 09:22 170/94 H 02/25/24 09:21 74 22 02/25/24 09:00 66 17 02/25/24 08:39 68 19 02/25/24 07:30 197/91 H 02/25/24 07:30 77 27 H 92 02/25/24 07:06 73 17 97 02/25/24 07:00 172/70 H 02/25/24 06:42 71 22 97 02/25/24 06:39 72 23 96 02/25/24 06:39 208/107 H 02/25/24 06:39 208/107 H 02/25/24 06:33 79 02/25/24 06:00 65 20 186/93 H 98 02/25/24 05:20 69 20 187/86 H 95 02/25/24 05:11 61 02/25/24 04:34 18 186/80 H 99 02/25/24 04:01 72 96 02/25/24 04:01 36.9 C 74 18 212/92 H 96 02/25/24 03:29 36.2 C L 78 18 201/108 H 98 O2 Del Method 02/25/24 14:11 Room Air 02/25/24 14:00 02/25/24 13:15 02/25/24 12:00 02/25/24 11:00 02/25/24 10:00 02/25/24 09:22 02/25/24 09:22 02/25/24 09:22 02/25/24 09:21 02/25/24 09:00 02/25/24 08:39 02/25/24 07:30 02/25/24 07:30 02/25/24 07:06 02/25/24 07:00 02/25/24 06:42 02/25/24 06:39 02/25/24 06:39 02/25/24 06:39 02/25/24 06:33 02/25/24 06:00 Room Air 02/25/24 05:20 Room Air 02/25/24 05:11 02/25/24 04:34 Room Air 02/25/24 04:01 Room Air 02/25/24 04:01 Room Air 02/25/24 03:29 Room Air PG Care Time/CCT Total # of Minutes Spent Total Time Spent with Patient: Total time spent is greater than 50% in coordination of care (as documented) at patient's floor/unit and/or counseling patient: Coding Level of Care Code 61616 INT INP/OBS CARE 2/55MIN Diagnoses Right ureteral stone N20.1 Abdominal pain, acute R10.9
[2024-02-25 16:45] VITALS: RESP 18
[2024-02-25] MEDS: INSULIN ASPART PER UNIT CHARGE SC SCH (16:55)
--- NOTE | 2024-02-25 17:30 | Electrocardiogram Report ---
Test Reason : Blood Pressure : */* mmHG Vent. Rate : 65 BPM Atrial Rate : 65 BPM P-R Int : 148 ms QRS Dur : 76 ms QT Int : 460 ms P-R-T Axes : -12 8 11 degrees QTcB Int : 478 ms Normal sinus rhythm Minimal voltage criteria for LVH, may be normal variant ( R in aVL ) Nonspecific ST abnormality Abnormal ECG When compared with ECG of 21-Jul-2010 16:43, Left ventricular hypertrophy is now Present Diffuse ST abnormality is now present Confirmed by Feliciano Baires ([id number]) on 02/25/2024 5:30:26 PM Referred By: REFERRED SELF Confirmed By: Feliciano Baires
[2024-02-25] MEDS: hydrALAZINE HCL 20 MG/ML VIAL IV STA (17:34)
[2024-02-25] MEDS: ACETAMINOPHEN 325 MG TAB PO PRN (20:13)
[2024-02-26 06:41] LABS: Basophils # (auto) 0.07 K/uL (0.00-0.20); Basophils % (auto) 0.9 %; Eosinophils # (auto) 0.27 K/uL (0.00-0.50); Eosinophils % (auto) 3.4 %; Hemoglobin 12.7 g/dl (12.0-16.0); Immature Granulocytes # (auto) 0.03 K/uL (0.01-0.20); Immature Granulocytes % (auto) 0.4 %; Lymphocytes # (auto) 2.39 K/uL (1.20-3.40); Lymphocytes % (auto) 30.4 %; Mean Corpuscular Hemoglobin 31.1 pg (25.0-34.0); Mean Corpuscular Hgb Conc 34.3 g/dL (32.0-36.0); Mean Corpuscular Volume 90.5 fL (80.0-100.0); Mean Platelet Volume 12.2 fL (9.4-12.4); Monocytes # (auto) 0.52 K/uL (0.11-0.59); Monocytes % (auto) 6.6 %; Neutrophils # (auto) 4.57 K/uL (1.40-6.50); Neutrophils % (auto) 58.3 %; Platelet Count 248 K/uL (130-400); RDW Coefficient of Variation 12.5 % (11.5-14.5); RDW Standard Deviation 41.1 fL (36.4-46.3); Red Blood Count 4.09 M/uL (4.20-5.40); White Blood Count 7.85 K/ul (4.8-10.8)
[2024-02-26 06:53] LABS: BUN Creatinine Ratio 11.4 (10-20); Creatinine Clr Calc Pharmacy 36.7 ml/min
[2024-02-26] MEDS: hydrALAZINE HCL 20 MG/ML VIAL IV PRN (07:43)
--- NOTE | 2024-02-26 08:20 | Urology Progress Note ---
Date of Service February 26, 2024 Assessment & Plan (1) Right ureteral stone: Plan 73yo female who presented with right sided abdominal/flank pain and was found to have a right 3mm UVJ stone 2 x 3 mm with mild hydronephrosis Patient passed stone today and I confirmed this visually. I will send this for chemical analysis. I think patient is stable to go home from a urologic perspective. Suspect her creatinine will improve. Recommended that we see her back in 2 months with a renal ultrasound to ensure resolution of hydronephrosis. Patient was agreeable Rest of care per medicine team. Urology to sign off. Admission and Anticipated Discharge Date Admission Date: February 25, 2024 Subjective Afebrile with stable vitals. Labs stable with a slight increase in creatinine. Patient reported passing stone this morning I confirmed there was a small calculus in the collection jar. She has no pain. Physical Exam Physical Exam: General: Alert and oriented, no acute distress HEENT: Normocephalic, mucous membranes moist Pulmonary: Nonlabored respirations Abdomen: Nondistended Extremities: Moves all 4 spontaneously Neuro: No gross deficits Skin: Warm, dry, no rashes noted Results & Data Vital Signs (Past 12 Hours) Vital Signs Temp Pulse Pulse Resp BP Pulse Ox O2 Del Method 02/26/24 07:41 37.1 C 81 18 191/84 H 93 Room Air 02/26/24 07:13 86 02/26/24 02:54 36.4 C L 76 18 164/73 H 95 Room Air 02/25/24 23:31 36.6 C 87 18 144/77 H 95 Room Air 02/25/24 21:42 61 PG Care Time/CCT Total # of Minutes Spent Total Time Spent with Patient: Total time spent is greater than 50% in coordination of care (as documented) at patient's floor/unit and/or counseling patient: Coding Level of Care Code 54510 SUB INP/OBS CARE 2/35MIN Diagnoses Right ureteral stone N20.1
[2024-02-26] MEDS ORDERED: metFORMIN HCL ER 500 MG TABCR PO SCH (09:00)
[2024-02-26] MEDS: lisinopril 20 MG TAB PO STA (10:56)
[2024-02-26 11:48] VITALS: BP 165/66; PULSE 78; TEMP 98.2; O2SAT 95
--- NOTE | 2024-02-26 12:40 | Discharge Summary ---
Discharge Summary Date of Service February 26, 2024 Principal Dx & Hospital Course #1 = Principal Diagnosis (1) Abdominal pain, acute: Due to right ureteral calculus and colic. She spontaneously passed the stone and did not need any intervention. Appreciate urology consultation and recommendations (2) Hypokalemia: Corrected with parenteral replacement (3) Hypomagnesemia: Corrected with parenteral replacement (4) Hypertension: Lisinopril uptitrated to 40 mg daily for better blood pressure control (5) Type 2 diabetes mellitus: ADA diet. Sliding scale coverage. Continue current medical management Plan Home today, February 25 Admission HPI Per Admitting Provider 73-year-old female PMHx T2DM, hypothyroidism, HTN, and hypercholesterolemia presenting to ED for onset of RLQ abdominal pain starting at 0100 the morning of arrival. States that the pain had a sudden onset, mainly localized to the RLQ and wrapping some to her R flank. Describing it as sharp but in different severities, rating it 10/10 on the pain scale at its maximum, and currently around 4-5/10 on the pain scale. Did have a brief episode of nausea but denies vomiting. No recent trauma. CBC does reveal leukocytosis which is neutrophil predominant, but WNL lipase and no evidence of infection on UA. CTAP revealed right vesicoureteric junction intramural calculus (2 x 3 mm) with consequent mild proximal back pressure changes, associated smudged perinephric and periureteral fat planes relatively enlarged R kidney possibly post acute obstructive/inflammatory sequel, hepatic steatosis, distended gallbladder sludge and calculi, mild sigmoid diverticulosis. EKG was normal sinus rate at 65 bpm. Found to have hypokalemia and hypomagnesemia on inital labs. Patient received KCl, magnesium, Zofran, and acetaminophen in ED. Please see Dr. White's attestation for adjustments/additions to treatment plan. Discharge Exam General-alert and oriented x3, no fever, no chills HEENT-head atraumatic and normocephalic, pupils equal and reactive to light, extraocular muscles intact Neck-no lymphadenopathy or thyromegaly, trachea midline Chest-clear to auscultation. No rales, wheezing or rhonchi Cardiac-regular rate and rhythm, normal S1 and S2 Abdomen-normal bowel sounds, no hepatosplenomegaly Extremities-no cyanosis, clubbing, or edema Neuro-cranial nerves II through XII intact, motor and sensory function within normal limits, strength symmetrical, no focal deficits Psych-normal affect, normal mood Discharge Plan Discharge Items Patient Disposition: Home - Self-Care Reason For Visit: ABDOMINAL PAIN, HYPOKALEMIA, HYPOMAG Discharge Diagnosis: Right ureteral calculus with colic, uncontrolled hypertension, hypokalemia, hypomagnesemia Condition on Discharge: Good Activity: Resume your previous activity Non-emergency contact: Primary Care Provider Call non-emergency contact if: your symptoms worsen Follow-up/Referrals: Patricia Bojorquez MD [Primary Care Provider] - Diet: Carb Consistent or DM2 Addtl Attending Provider Instructions: Lisinopril increased to 40 mg once daily for better blood pressure control. A new prescription has been sent to your pharmacy. Follow-up with urology in 2 months. Pending Studies at Discharge: No Stand-Alone Forms: My [facility] [employer], Smoking Cessation Medications and DC Order Prescriptions: New lisinopril 40 mg Tablet 40 mg PO DAILY Qty: 30 0RF Continued (DME) OneTouch Ultra Test Strip See Rx Instructions .Route Qty: 100 5RF Rx Instructions: TEST BSG ONCE DAILY; DX CODE- E11.9 dapagliflozin propanediol [Farxiga] 10 mg tablet 10 mg PO DAILY Qty: 90 3RF levothyroxine 50 mcg tablet 50 mcg PO DAILY Qty: 90 3RF atorvastatin 20 mg tablet 20 mg PO DAILY Qty: 90 3RF metformin 500 mg tablet extended release 24 hr 1,000 mg PO DAILY Qty: 180 3RF potassium chloride 20 mEq tablet extended release 20 meq PO DAILY Qty: 90 3RF aspirin 81 mg Tablet,Delayed Release (Dr/Ec) 81 mg PO QAM cholecalciferol (vitamin D3) [Vitamin D3] 1,000 unit Capsule 1,000 unit PO QAM Discontinued lisinopril 20 mg tablet 20 mg PO DAILY Qty: 90 3RF Discharge Orders: Discharge Order (Routine); Ordered 02/26/24 Ordered By: Dev Munoz Admission Data Admit Date/Time: 02/25/24 08:26 Attending Provider: Dev Munoz Admit Provider: Dev Munoz Primary Care Provider: Patricia Bojorquez Other Providers: Jan Mosqueda; Radha Briggs; Jose Francisco Pickens; Opal Casiano; Estella Kruger; Fidel Valladares; Rosamaria Daly.; Damaso Ying; Aris Kapoor; Ishmael Arechiga; Tila White Hospital Stay Data Consultations 02/25/24 06:06 ED Decision to Admit Stat 02/25/24 09:41 Consult Urology Routine 02/25/24 14:24 Consult Urology Routine Diagnostic Imagining Performed 02/25/24 03:44 CT abd pelvis IV con only Stat Pending Results Patient Have Any Pending Studies at Discharge: No Discharge Instructions Given to Patient (Per Discharging Provider) Lisinopril increased to 40 mg once daily for better blood pressure control. A new prescription has been sent to your pharmacy. Follow-up with urology in 2 months. Total Time Total Time Spent Total Time Spent (In Minutes): 45 minutes Coding Level of Care Code 29525 INP/OBS DISCH >30 MIN Diagnoses Abdominal pain, acute R10.9 Hypokalemia E87.6 Hypomagnesemia E83.42 Hypertension I10 Type 2 diabetes mellitus E11.9
[2024-02-27] MEDS ORDERED: lisinopril 40 MG TAB PO SCH (09:00)
== END 2024-02-26 13:50 | disposition home or self-care (01) | DRG 694 ==
LOC: ED 03:25 → EDINP 08:26 → 2W 09:30
DX: E11.9 Type 2 diabetes mellitus without complications; I10 Essential (primary) hypertension; Z66 Do not resuscitate; Z79.82 Long term (current) use of aspirin; Z79.899 Other long term (current) drug therapy; Z79.84 Long term (current) use of oral hypoglycemic drugs; Z88.2 Allergy status to sulfonamides; E78.00 Pure hypercholesterolemia, unspecified; E03.9 Hypothyroidism, unspecified; E83.42 Hypomagnesemia; Z88.8 Allergy status to other drugs, medicaments and biological substances; N13.2 Hydronephrosis with renal and ureteral calculous obstruction; E87.6 Hypokalemia; Z79.890 Hormone replacement therapy; I24.89 Other forms of acute ischemic heart disease